=== PATIENT | male | born 1940 | race Caucasian/White ===

== ENCOUNTER 2018-10-15 00:46 | Emergency (ER) | payer MEDICARE, OTHER ==
[~2018-10-15] VITALS: Ht 182.9 cm; Wt 58.9 kg
[2018-10-15] MEDS ORDERED: ipratropium/albuterol 3ml nebule NEB ONE (01:25)
[2018-10-15] MEDS ORDERED: methylPREDNISolone sod succ 125mg/2ml vial IV ONE (01:25)
[2018-10-15 01:40] LABS: BASOPHILS % (AUTO) 0.4 % (0-1); EOSINOPHILS % (AUTO) 0.6 % (0-6); HEMATOCRIT 48.1 % (42.0-52.0); HEMOGLOBIN 15.4 g/dl (14.0-17.9); LYMPHOCYTES % (AUTO) 23.6 % (21-51); MEAN CORPUSCULAR HGB CONC 32.1 g/dL (33.0-36.5); MEAN CORPUSCULAR VOLUME 93.4 FL (78-98); MEAN PLATELET VOLUME 7.5 FL (7.4-10.4); MONOCYTES # (AUTO) 0.8 X10'3 (0-0.9); MONOCYTES % (AUTO) 10.2 % (2-12); NEUTROPHILS # (AUTO) 5.5 X10'3 (1.8-7.7); NEUTROPHILS % (AUTO) 65.2 % (42-75); PLATELET COUNT 310 X10'3 (140-440); RED BLOOD COUNT 5.15 X10'6 (4.70-6.10); RED CELL DISTRIBUTION WIDTH 13.7 % (11.5-14.5); WHITE BLOOD COUNT 8.3 X10'3 (4.5-11.0)
[2018-10-15 01:46] LABS: ALANINE AMINOTRANSFERASE 63 U/L (12-78); ALBUMIN 4.1 G/DL (3.4-5.0); ALBUMIN/GLOBULIN RATIO 1.1 (1.1-1.5); ALKALINE PHOSPHATASE 98 IU/L (46-116); ANION GAP 15 (8-16); ASPARTATE AMINO TRANSFERASE 90 U/L (10-37); BILIRUBIN,TOTAL 0.7 MG/DL (0.1-1.0); BLOOD UREA NITROGEN 18 MG/DL (7-18); BUN/CREATININE RATIO 20.7 (5.4-32.0); CALCIUM 8.6 MG/DL (8.5-10.1); CHLORIDE 103 MMOL/L (99-107); CREATININE 0.87 MG/DL (0.60-1.10); GLUCOSE 96 MG/DL (70-104); INR 1.1 INR; MAGNESIUM 2.2 MG/DL (1.5-2.4); PARTIAL THROMBOPLASTIN TIME 32 SECONDS (22-32); POTASSIUM 3.6 MMOL/L (3.5-5.1); PROTHROMBIN TIME 10.9 SECONDS (9.0-12.0); SODIUM 142 MMOL/L (135-145); TOTAL CARBON DIOXIDE 23.6 MMOL/L (24-32); TOTAL PROTEIN 7.9 G/DL (6.4-8.2); eGFR 85 ML/MIN
[2018-10-15 02:26] LABS: ABG BASE EXCESS -2.5 mmol/L (-2.0-3.0); ABG HCO3 21.1 mmol/L (22.0-26.0); ABG OXYGEN SATURATION 96.6 % (95-98); ABG PCO2 (T) 32.8 mmHg (35.0-48.0); ABG PH (T) 7.424 (7.350-7.450); ABG PO2 (T) 84.4 mmHg (83-108); FCOHb 4.7 % (0.5-1.5); FLOW 4 L/min; FMetHb 0.2 % (0.3-1.12); FO2Hb 91.9 % (94-100); PATIENT TEMPERATURE 36.6; TOTAL HEMOGLOBIN 15.8 G/dl (14.0-18.0)
[2018-10-15] MEDS ORDERED: iohexol 300mg/ml 100ml inj. ONE (02:37)
[2018-10-15] MEDS ORDERED: normal saline 1000ML IV soln IVB ONE (02:40)
--- NOTE | 2018-10-15 03:45 | NUR ---
PT RESTING QUIETLY, VITALS STABLE AND BREATHING IMPROVED.
[2018-10-15] MEDS ORDERED: CefTRIAXone 2gm/D5W 50ml 50 ML IV ONE (04:20)
[2018-10-15] MEDS ORDERED: azithromycin 250mg tablet PO ONE (04:20)
[2018-10-15] MEDS ORDERED: albuterol 2.5 MG/3 ML nebule NEB ONE (04:20)
[2018-10-15 05:14] VITALS: BP 147/83
[2018-10-15] MEDS ORDERED: DOXY100C2 PO (05:34)
[2018-10-15] MEDS ORDERED: ALBU6.7H INH (05:34)
[2018-10-15] MEDS ORDERED: PRED20TA PO (05:34)
== END 2018-10-15 05:46 | disposition home or self-care (01) ==
LOC: ER 00:46
DX: J44.1 Chronic obstructive pulmonary disease with (acute) exacerbation (principal); J18.9 Pneumonia, unspecified organism; F17.200 Nicotine dependence, unspecified, uncomplicated; Z90.89 Acquired absence of other organs; Z88.5 Allergy status to narcotic agent; Z79.899 Other long term (current) drug therapy
CPT/HCPCS: 36415; 36600; 71045; 71260; 80053; 82803; 83605; 83735; 84484; 85018; 85025; 85610; 85730; 87040; 93005; 94640; 94760; 96365; 96375; 99284; J0696; J2930; Q9967